=== PATIENT | male | born 1970 | race Caucasian/White ===

== ENCOUNTER → 2017-11-18 | Outpatient (CLI) | payer OTHER ==
--- NOTE | 2017-11-19 07:36 | SPLIT NIGHT TECHNICIAN REPORT ---
[facility] Split Night Polysomnogram - Sales And Service Engineer Report Study date: 11/18/2017 Referring Physician: Joseph Gonzales M.D. Name: RICHARDTROY WEBB Sales And Service Engineer: Leigh Mcguire, PSGT. Date of : 1970 Height: 47 years, Height 5' 11" Sex: Male Weight: 211 lbs Age: 47 Neck Circum: 16 inches BMI: Medications: 29.43 ALLOPURINOL 300 MG, OMEPRAZOLE 40 MG, VYVANSE 30 MG. Patient History 47 YEAR OLD MALE PRESENTS TO THE SLEEP LAB FOR A SPLIT NIGHT STUDY, AHI >5 . PT. STATES THAT HE SNORES AND HAS HAD WITNESSED APNEA.PATIENT WAS TOLD THIS WAS LIKE A HOTEL SO HE BROUGHTA BOTTLE OF WINE HIM. ESS= 13, NECK =16 INCHES. Parameters Monitored NPSG: E1-M2, E2-M1, Fp1-M2, Fp2-M1, F3-M2, F4-M2, F4-M1, C3-M2, C4-M2, C4-M1, O1-M2, O2-M2, O2-M1, T3-M2, T4-M1, P3-M2, P4-M1, CHIN1, CHIN2, HR, EKG, Legs, PFLOW, SNOR, FLOW, CFLOW, Tidal Volume, THOR, ABDO, SpO2, PLTH, CPRESS, ETCO2 Wave, ETCO2, pH SLEEP SUMMARY DATA DIAGNOSTIC TREATMENT Lights Out: 10:43:48 PM NONE Lights On: 2:18:48 AM NONE Total Recording Time (TRT): 217.1 min. 196.4 min. Total Sleep Time (TST): 139.5 min. 139.5 min. NREM Time: 139.5 min. 131.5 min. REM Time: 0.0 min. 8.0 min. Sleep Period Time (SPT): 178.0 min. 160.0 min. Sleep Efficiency (SE): 64 % 71 % Sleep Latency: 35.5 min. NONE min. Arousal Index: 13.8 15.5 PAP Treatment Levels: 4, 5 * Optimal Pressure(s) SLEEP STAGING DATA DIAGNOSTIC TREATMENT Duration (min) TST % Duration (min) TST % Stage Wake: 77.6 min. -- 56.9 min. -- WASO: 40.0 min. -- 20.5 min. -- NREM: 139.5 min. 100 % 131.5 min. 94 % Stage N1: 18.5 min. 13 % 5.5 min. 4 % Stage N2: 89.5 min. 64 % 126.0 min. 90 % Stage N3: 31.5 min. 23 % 0.0 min. 0 % REM: 0.0 min. 0 % 8.0 min. 6 % POSITIONAL DATA Event Count Index Event Count Index Supine: N/A N/A 0 0.0 Supine NREM: N/A N/A 0 0.0 Supine REM: N/A N/A N/A N/A Non-Supine: 13 5.6 0 0.0 Non-Supine NREM: 13 5.6 0 0.0 Non-Supine REM: N/A N/A 0 0.0 AROUSAL SUMMARY DATA: Event Count Index Event Count Index Apnea Arousals: 0 0.0 0 0.0 Hypopnea Arousals: 0 0.0 0 0.0 Snore Arousals: 8 3.4 5 2.2 PLM Arousals: 0 0.0 1 0.4 Non-Specific Arousals: 23 9.9 28 12.0 Total Arousals: 32 13.8 36 15.5 MYOCLONUS (PLM) Event Count Index Event Count Index PLM: 0 0.0 6 2.6 PLM AROUSAL: 0 0.0 1 0.4 PLM W/O AROUSAL 0 0.0 5 2.2 PLM W/RESP EVENT 0 0.0 0 0.0 MYOCLONUS (PLM) Event Count Index Event Count Index LM: 1 4.3 27 11.6 LM AROUSAL: 1 0.4 2 0.9 LM W/O AROUSAL LM W/RESP EVENT LM NON SPECIFIC 9 3.9 30 12.9 HEART RATE DATA DIAGNOSTIC TREATMENT Sleep (bpm): 72 68 REM (bpm): N/A 93 NREM (bpm): 93 93 Tachycardia Count: 0 0 Tachycardia Duration: 0.00 0 Bradycardia Count: 0 0 Bradycardia Duration: 0.00 0 DIAGNOSTIC PORTION TREATMENT PORTION RESPIRATORY DATA Event Count Index Event Count Index AHI: -- 5.6 -- 0.0 RDI: -- 5.6 -- 0 Obstructive Apnea: 0 0.0 0 0.0 Central Apnea: 0 0.0 0 0.0 Mixed Apnea: 0 0.0 0 0.0 Hypopnea: 13 5.6 0 0.0 RERA: 0 0.0 0 0.0 Total Apneas: 0 0.0 0 0.0 RESPIRATORY DATA REM NREM SLEEP REM NREM SLEEP Supine Position: Obstructive Apneas: N/A N/A N/A N/A 0 0 Central Apneas: N/A N/A N/A N/A 0 0 Mixed Apneas: N/A N/A N/A N/A 0 0 Hypopneas: N/A N/A N/A N/A 0 0 RERA N/A N/A N/A N/A 0 0 Total Supine Events: N/A N/A N/A N/A 0 0 Supine AHI: N/A N/A N/A N/A 0.0 0.0 Supine RDI: N/A N/A N/A N/A 0.0 0.0 REM NREM SLEEP REM NREM SLEEP Non-Supine Position: Obstructive Apneas: N/A 0 0 0 0 0 Central Apneas: N/A 0 0 0 0 0 Mixed Apneas: N/A 0 0 0 0 0 Hypopneas: N/A 13 13 0 0 0 RERA N/A 0 0 0 0 0 Total Supine Events: N/A 13 13 0 0 0 Supine AHI: N/A 5.6 5.6 0.0 0.0 0.0 Supine RDI: N/A 5.6 5.6 0.0 0.0 0.0 OXYGEN DESTAURATION DATA: Event Count Index Event Count Index REM Desaturations: N/A N/A 0 0.0 NREM Desaturations: 27 11.6 6 2.7 SNORE DATA DIAGNOSTIC TREATMENT Snore Time: 7.8 2:35:18 AM Snore TST%: 4 4 Snore Arousal Count: 8 5 Snore Arousal Index: 3.4 2.2 Desaturation Event Summary: Minimum %SpO2 Event Count Mean/Min/Max Duration(sec.) Desaturation Index % Time In Bed > 90 33 18.5 / 9.3 / 29.3 5.4 92.1 86 - 90 1 26.3 / 26.3 / 26.3 1.9 7.8 81 - 85 0 N/A 0.0 0.1 76 - 80 0 N/A 0.0 0.0 71 - 75 0 N/A 0.0 0.0 66 - 70 0 N/A 0.0 0.0 61 - 65 0 N/A 0.0 0.0 56 - 60 0 N/A 0.0 0.0 51 - 55 0 N/A 0.0 0.0 < 50 0 N/A 0.0 0.0 OXYGEN SATURATION DATA DIAGNOSTIC TREATMENT SpO2 Mean Sleep: 93 % 93 % SpO2 Mean REM: N/A % 93 % SpO2 Mean NREM: 93 % 93 % SpO2 Minimum Sleep: 87 % 88 % SpO2 Minimum REM: N/A % 92 % SpO2 Minimum NREM: 87 % 88 % Time Below 90% (TST): 1.7 0.8 Time Below 88% (TST): 0.0 0.0 Total REM NREM Awake <50% 0.0 min. 0.0 min. 0.0 min. 0.0 min. 51 - 60% 0.0 min. 0.0 min. 0.0 min. 0.0 min. 61 - 70% 0.0 min. 0.0 min. 0.0 min. 0.0 min. 71 - 80% 0.0 min. 0.0 min. 0.0 min. 0.0 min. 81 - 90% 31.9 min. 0.0 min. 10.8 min. 21.1 min. 91 - 100% 369.1 min. 8.0 min. 260.2 min. 100.9 min. Average 93 93 93 93 Minimum SpO2 81 92 87 81 Desaturation Event Index 4.8 0.0 7.3 0.0 # Desat. Events below 89% 4 N/A 4 N/A Time(%) with Saturation below 89% 0.9 0.0 0.1 0.8 Time(min.) with Saturation below 89% 3.7 0.0 0.5 3.2 Recording Sales And Service Engineer Comments: Split -Night: Mr. Guzman slept in the right, supine and prone positions. No cardiac arrhythmia or PLM's noted. No bruxism noted. Snoring was noted and scored as a 2 on a scale of 1 through 5. (0=no snoring, 5=snoring loud enough to be heard through a closed door or down the [address]) At 2:18 am, MR. Guzman has met specific Split-Night criteria during the diagnostic portion of this study. CPAP was initiated at +4 CMH2O and up-titrated to an optimal level of +5 CMH2O, which nearly eliminated all respiratory events and snoring. A medium Res Med Air Fit P10, was used during titration Mr. Guzman awoke to use the restroom one time during the night. Mr. Guzman stated, I did not sleep as well as I do when I am in my own bed .This was the strangest night I've ever had. The final report will be interpreted and signed by a sleep physician. The completed physician report will then be placed in the patient medical record. Therapy Event: Therapy (cm H20) 0 4 5 Total Time at Pressure (min.) 216.6 55.7 140.7 TST at Pressure (min.) 139.5 41.3 98.2 # Periods 1 1 1 Sleep Onset (min.) 35.5 14.4 0.0 REM Onset (min.) N/A N/A 11.7 Sleep Efficiency % 64 74 69 Wakefulness (%) 35.6 25.9 30.2 Wakefulness (min.) 77.1 14.4 42.5 NREM 1 (%) 8.5 7.2 1.1 NREM 1 (min.) 18.5 4.0 1.5 NREM 2 (%) 41.3 67.0 63.0 NREM 2 (min.) 89.5 37.3 88.7 NREM 3 (%) 14.5 0.0 0.0 NREM 3 (min.) 31.5 0.0 0.0 REM (%) 0.0 0.0 5.7 REM (min.) 0.0 0.0 8.0 # Arousals 32 3 33 Arousal Index 13.8 4.4 20.2 # Snore 396 2 289 Snore Index 170.3 2.9 176.6 AHI 5.6 0.0 0.0 AHI Supine N/A N/A 0.0 AHI Non-Supine 5.6 0.0 0.0 NREM AHI 5.6 0.0 0.0 REM AHI N/A N/A 0.0 RDI 5.6 0.0 0.0 # Obstructive 0 0 0 # Central Ap 0 0 0 # Mixed 0 0 0 # Hypopneas 13 0 0 RERAS 0 0 0 Total Respiratory Events 13 0 0 Time Below SpO2 89.00% (min.) 0.2 0.0 0.3 Mean NREM SpO2 (%) 93 94 93 Mean REM SpO2 (%) N/A N/A 93 Mean Sleep SpO2 (%) 93 94 93 Min NREM SpO2 (%) 87 92 88 Min REM SpO2 (%) N/A N/A 92 Position Supine (min.) 0.0 0.0 5.6 Position Non-supine (min.) 139.5 41.3 92.6 LM Index Sleep 4.3 5.8 17.7 LM Index NREM 4.3 5.8 17.3 LM Index REM N/A N/A 22.5 Mean Heart Rate (bpm) 72 71 67 Min Heart Rate (bpm) 61 63 54
--- NOTE | 2017-11-28 11:49 | POLYSOMNOGRAPH REPORT ---
CLINICAL DATA: A 47-year-old male with snoring and witnessed apnea, referred by Rose Roberto. He did have a home sleep apnea test but failed because of inconclusive data collection. He does have loud snoring and has had apneic episodes for years. He has been told by people that sleep in the same room with him that he snores loudly and stops breathing. He does have some daytime fatigue. This was a split-night study. SLEEP ARCHITECTURE: For the diagnostic portion of the study, total sleep period time was 178 minutes. Total sleep time was 139.5 minutes, all non-REM sleep. Sleep latency was 35.5 minutes. Sleep efficiency was 64%. Sleep consisted of stage N1 13%, stage N2 64% and stage N3 23%. For the treatment portion of the study, sleep period time was 160 minutes. Total sleep time was 139.5 minutes divided between 131.5 minutes of non-REM sleep and 8 minutes of REM sleep. Sleep latency was immediate. Sleep efficiency was 71%. Sleep consisted of stage N1 4%, stage N2 90% and REM 6%. AROUSAL DATA: Prior to treatment, 32 arousals were recorded for an index of 13.8 per hour. During treatment, 36 arousals were recorded for an index of 15.5 per hour. PERIODIC LIMB MOVEMENT DATA: Prior to treatment, 9 limb movements were noted for an index of 3.9 per hour. During treatment, 30 limb movements were noted for an index of 4.9 per hour. EKG: Heart rates ranged from 68-93 beats per minute. No arrhythmias were noted. RESPIRATORY DATA: Mild sleep apnea was documented prior to treatment. The diagnostic AHI was 5.6. There were 13 hypopneic episodes recorded. The AHI with treatment was 0. OXIMETRY DATA: Transient hypoxemia was seen. Oxygen yoko was 87% prior to treatment during non-REM sleep. Mean saturation with treatment was 93%. INTERNAL COMMUNICATIONS INTERN'S COMMENTS AND TREATMENT SUMMARY: The patient slept in the right, supine and prone positions. Snoring was mild, rated 2 on a scale of 1-5. The patient used a medium ResMed AirFit P10 mask. CPAP was started at 4 cm of water pressure and was titrated up to 5 cm water pressure. At his final pressure setting, he slept for 98 minutes with an AHI of 0. IMPRESSION: Mild sleep apnea/hypopnea corrected with CPAP 5 cm water pressure using a medium ResMed AirFit P10 mask. RECOMMENDATIONS: The patient should be started on the above-noted treatment regimen and be seen back in followup within 90 days to document efficacy and compliance. MTDD
== END | disposition home or self-care (01) ==
LOC: C.NEUR 20:00
PROVIDERS: ATTEND Internal Medicine Pulmonary Disease
DX: G47.30 Sleep apnea, unspecified (principal); R53.83 Other fatigue; R06.83 Snoring